=== PATIENT | female | born 1985 | race Caucasian/White ===

== ENCOUNTER 2016-07-07 12:08 | Emergency (ER) | payer SELFPAY ==
[~2016-07-07] VITALS: Ht 172.7 cm; Wt 70.3 kg
[2016-07-07 12:12] VITALS: BP 138/93
== END 2016-07-07 13:38 | disposition left against medical advice (07) ==
LOC: ER 12:10
DX: K08.89 Other specified disorders of teeth and supporting structures (principal); Z53.21 Procedure and treatment not carried out due to patient leaving prior to being seen by health care provider